=== PATIENT | female | born 1965 | race Hispanic/Latino ===

== ENCOUNTER 2019-06-11 04:14 | Emergency (ER) | payer OTHER, SELFPAY ==
[2019-06-11 04:15] VITALS: BP 141/88; PULSE 67; RESP 16; TEMP 36.8; O2SAT 97; BMI 28.8
--- NOTE | 2019-06-11 04:29 | RAD_ITS ---
STUDY: X-RAY CHEST REASON FOR EXAM: Female, 53 years old. WEAKNESS TECHNIQUE: Single frontal view of the chest. COMPARISON: None. FINDINGS: EKG leads artifacts. No pneumothorax identified. There may be a tiny left pleural effusion. Bilateral basilar atelectasis/infiltrate. Normal size heart. Normal mediastinum and jignesh. Normal visualized pulmonary arteries. Normal visualized aortic arch and descending thoracic aorta. There are diffuse degenerative changes of the visualized thoracic spine. Normal visualized ribs, clavicles, and shoulders. There is no demonstrated abnormality of the visualized soft tissue structures of the upper abdomen. RAD/Chest 1 View (Portable) IMPRESSION: Bilateral basilar atelectasis/infiltrate. There may be a tiny left pleural effusion versus pleural thickening. Electronically Signed: Mode Koch, at 5:15 EDT Tel , Service support ,
--- NOTE | 2019-06-11 04:29 | EKG12_ITS ---
Test Reason : WEAKNESS Blood Pressure : / mmHG Vent. Rate : 078 BPM Atrial Rate : 078 BPM P-R Int : 148 ms QRS Dur : 098 ms QT Int : 400 ms P-R-T Axes : 013 017 023 degrees QTc Int : 456 ms Normal sinus rhythm Normal ECG Confirmed by MICHAEL ADAMS MD ([id number]), editor magazine MARY AMBRIZ ([id number]) on 06/15/2019 9:07:07 AM Referred By: TAMIKA Confirmed By:MICHAEL ADAMS MD
--- NOTE | 2019-06-11 04:33 | ED.DCSUM_ITS ---
- ER Visit Summary Date of Service: 06/11/19 Chief Complaint: Weakness History of Present Illness: The patient is a 53 F who presents with weakness that began approximate 1 hour prior to arrival. Patient states she feels lightheaded. Patient states she feels like she is anemic. Patient states this is generalized. Patient states nothing makes it better or worse. Patient denies any nausea or vomiting. Patient denies any abdominal pain. Patient denies any diarrhea, melena, or hematochezia. Patient denies any chest pain or shortness of breath. Patient denies any fevers or chills. Patient denies any dysuria or hematuria. Physical Examination: Vital signs are stable. Patient is afebrile. Patient is in no acute distress. Oral mucosa is pink and moist. Neck is supple. Trachea is midline. There is no JVD. Heart was regular rate and rhythm. Lungs are clear and equal bilaterally. Abdomen is soft. Bowel sounds are normal. There is no tenderness. There is no guarding. Cranial nerves II through XII are intact. There are no focal motor or sensory deficits. Extremities are intact. There is no calf tenderness or edema. Test Results: EKG showed normal sinus rhythm with a rate of 78. There are no acute ST or T wave changes. Portable chest x-ray was obtained. There is bilateral basilar atelectasis. This was interpreted by the radiologist and myself. CBC and comprehensive metabolic profile was within normal limits. Urinalysis showed leukocyte esterase of 100 with 5-10 white blood cells. Emergency Department Course and Treatment: Patient was given IV fluids. Urine culture was sent. Orthostatic vital signs were obtained and were within normal limits. Patient was feeling better on reevaluation. Patient was given a prescription for Bactrim. Patient was given her first dose here. Patient was instructed to drink plenty of fluids. Patient was instructed to follow-up with her primary care physician in 5 to 7 days. Patient understood and was agreeable with the plan. All questions were answered. Disposition: Discharge home Impression: 1. Weakness 2. Urinary tract infection This note was generated with [employer] software. It may contain incorrect words, spelling, and punctuation that were not noted in review of the chart prior to signing ED Disposition - Plan for ED Patient: Disposition: Home or Assisted Living Diagnosis: Weakness, Urinary tract infection Instructions: ED CYSTITIS Female Adult Prescriptions: Smz/Tmp Ds [Bactrim Ds] 1 tab PO BID #6 tab Prescription Printed Referrals: Care Physician,No Primary [Primary Care Provider] - Aroldo Moralez MD [STAFF PHYSICIAN] - 5-7 Days
[2019-06-11] MEDS: 0.9% Normal Saline 1,000 ML 1000 ML IV (04:36)
[2019-06-11 04:43] LABS: Absolute Lymphocyte Count 3.59 X10^3/uL (0.83-4.51); Absolute Neutrophil Count 3.2 X10^3/uL (2.0-7.7); Basophil# 0.06 X10^3/uL; Basophil% 0.8 % (0-1); Eosinophil# 0.05 X10^3/uL; Eosinophils% 0.7 % (0-5); Hematocrit 40.8 % (37-47); Hemoglobin 13.3 g/dL (12.0-15.0); Lymphocyte # 3.59 X10^3/ul (4.0); Lymphocyte % 48.4 % (19-41); Mean Corp Hgb Conc 32.6 g/dL (32-36); Mean Corpuscular Hgb 25.4 pg (27.0-32.0); Mean Platelet Vol. 9.8 fl (6.2-12.0); Monocyte# 0.55 X10^3/uL; Monocyte% 7.4 % (0-10); NRBC Flagged by Analyzer 0 % (0-5); Neutrophil # 3.16 X10^3/uL (2.7-7.7); Neutrophil % 42.6 % (47-70); Platelet Count 309 K/mm3 (150-450); RBC Distribution Width SD 45.3 fl (35.1-43.9); Red Blood Count 5.23 M/mm3 (4.2-5.4); White Blood Count 7.4 K/mm3 (4.4-11.0)
[2019-06-11 04:56] LABS: AST(SGOT) 22 U/L (15-37); Alanine Aminotransfer ALT/SGPT 32 U/L (13-56); Albumin, Serum 3.9 g/dL (3.2-5.0); Alkaline Phosphatase 100 U/L (45-117); Anion Gap 7 (5-15); BUN 19 mg/dL (7-18); BUN/Creat Ratio 28.7 RATIO (10-20); Calcium,Total 8.8 mg/dL (8.5-10.1); Chloride 109 mmol/L (98-107); Creatinine, Serum 0.66 mg/dL (0.55-1.02); EST Glomerular Filtration Rate 99 mL/min (>60); Est Glom Filt Rate - Afr Amer 120 mL/min (>60); Estimated Creatinine Clearance 77.96 ml/min; Globulin 3.9 g/dL (2.2-4.2); Glucose 104 mg/dL (74-106); Potassium 3.9 mmol/L (3.5-5.1); Protein, Total 7.8 g/dL (6.4-8.2); Sodium Level 140 mmol/L (136-145)
[2019-06-11 05:18] VITALS: BP 122/78; BP 135/103; BP 147/98; PULSE 75; PULSE 85; PULSE 93
[2019-06-11 05:34] VITALS: BP 151/114; PULSE 75; RESP 18; O2SAT 96
[2019-06-11 05:44] LABS: Mucous, Urine 0 SEEN /hpf (<or=2+); Red Blood Cells-Urine 0 SEEN /hpf (0-5); Squamous Epithelial Cells - UA 0 SEEN /hpf (5-10)
[2019-06-11 05:46] LABS: Color, Urine Yellow (Yellow); Glucose, Dipstick Normal (Normal); Ketone-Dipstick Negative (Negative); Leukocyte Esterase-Dipstick 100 /ul (Negative); Nitrite-Dipstick Negative (Negative); Occult Blood-Urine Negative /ul (Negative); Protein-Dipstick Negative (Negative); Specific Gravity, Urine 1.015 (1.002-1.030); Urine Bilirubin Dipstick Negative (Negative); Urine Clarity Sl. Cloudy (Clear); Urine Urobilinogen Normal (Normal)
[2019-06-11 05:54] LABS: White Blood Cells 5-10 SEEN /hpf (0-5)
[2019-06-11 05:55] LABS: Bacteria RARE /hpf (None Seen)
[2019-06-11] MEDS: Smz/Tmp Ds Tablet 1 TABLET PO (06:24)
[2019-06-11 06:29] VITALS: BP 132/78; PULSE 76; RESP 20; O2SAT 97
== END 2019-06-11 06:30 | disposition home or self-care (01) ==
PROVIDERS: Emergency Provider Emergency Medicine
DX: R53.1 Weakness (principal); N39.0 Urinary tract infection, site not specified
CPT/HCPCS: 71045; 80053; 81001; 85025; 87086; 87088; 87804; 87807; 93005; 99284; J7030; A4216

== ENCOUNTER 2020-05-12 09:41 | Outpatient (RCR) | payer OTHER, SELFPAY ==
[2020-04-21 14:22] VITALS: BMI 29.4
[2020-05-12] MEDS: COVID-19 VACC, MRNA(PFIZER)/PF 30 MCG/0.3 ML SYRINGE IM (13:00)
[2020-06-02] MEDS: COVID-19 VACC, MRNA(PFIZER)/PF 30 MCG/0.3 ML SYRINGE IM (11:48)
== END 2020-08-01 23:59 ==
LOC: IMMUN 09:41
PROVIDERS: PCP Nurse Practitioner Family; Referring Provider Family Medicine; Visit Provider Family Medicine
DX: Z23 Encounter for immunization (principal)
CPT/HCPCS: 0001A; 0002A; 91300

== ENCOUNTER 2024-05-25 21:13 | Emergency (ER) | payer SELFPAY ==
[2024-05-25] VITALS (8 sets, daily range): BP systolic 108–152; BP diastolic 66–131; PULSE 97–215; RESP 22–30; TEMP 36.3–36.5; O2SAT 91–97; BMI 35.8
--- NOTE | 2024-05-25 21:22 | EKG12_ITS ---
Test Reason : DYSRHYTHMIA Blood Pressure : */* mmHG Vent. Rate : 204 BPM Atrial Rate : * BPM P-R Int : * ms QRS Dur : 78 ms QT Int : 214 ms P-R-T Axes : * 98 -63 degrees QTcB Int : 394 ms Critical Test Result: High HR Supraventricular tachycardia Rightward axis Marked ST abnormality, possible inferolateral subendocardial injury Abnormal ECG Confirmed by Ceasar Rocha ([id number]), editor greeting card FRANCINE CASILLAS ([id number]) on 05/26/2024 8:04:03 AM Referred By: TAMIKA Confirmed By: Ceasar Rocha
--- NOTE | 2024-05-25 21:40 | EKG12_ITS ---
Test Reason : Dysrhythmia Blood Pressure : */* mmHG Vent. Rate : 106 BPM Atrial Rate : 106 BPM P-R Int : 164 ms QRS Dur : 92 ms QT Int : 342 ms P-R-T Axes : 67 63 51 degrees QTcB Int : 454 ms Sinus tachycardia Incomplete right bundle branch block Nonspecific ST abnormality Abnormal ECG Confirmed by Ceasar Rocha ([id number]), technical writer and editor FRANCINE CASILLAS ([id number]) on 05/26/2024 7:52:06 AM Referred By: ERJI Confirmed By: Ceasar Rocha
[2024-05-25] MEDS: Adenosine 6 MG/2 ML Syringe IV (21:44)
--- NOTE | 2024-05-25 21:51 | RAD_ITS ---
PROCEDURE: CHEST 1 VIEW (PORTABLE) 05/25/2024 REASON FOR EXAM: PALPITATIONS TECHNIQUE: Frontal view of the chest. COMPARISON: June 11, 2019 FINDINGS: Hardware: None Heart: Cardiomegaly Lungs: Small left basilar effusion/atelectasis. Superimposed infection can not be excluded. Bones: The bones are unremarkable. Other: RAD/Chest 1 View (Portable) IMPRESSION: Small left basilar effusion/atelectasis. Superimposed infection be excluded. Reading Location: [facility]
--- NOTE | 2024-05-25 21:52 | EDS_ITS ---
HPI History of Present Illness Chief Complaint: Palpitations Narrative Narrative: 58-year-old female presents with elevated heart rate and palpitations that she began experiencing approximately 30 minutes ago. She states that she was sitting watching TV and felt her heart racing. She denies any recent leg swelling, no shortness of breath, no chest pain. She had an episode similar to this 10 to 15 years ago. She states she came to the emergency department was given medication, and did follow-up with cardiology but is not currently taking any medications for a fast heart rate because it never happened again after the initial episode. PFSH PFSH Home Medications ?Medication ?Instructions ?Recorded ?Last Taken ?Type NK 05/25/24 Unknown History Allergy/AdvReac Type Severity Reaction Status Date / Time No Known Allergies Allergy Verified 05/25/24 21:21 Family History Other Hypertension Surgical History H/O nasal septoplasty Social History Smoking Status: Never smoker ROS ROS ED ROS Narrative Review of systems positive for elevated heart rate and palpitations. Denies chest pain, shortness of breath, leg swelling, or other symptoms. EXAM Physical Exam Narrative Exam Narrative: Afebrile. Vital signs noted. Nontoxic-appearing. Cardiovascular examination reveals tachycardia in the 200s. Lungs clear to auscultation bilaterally. Abdomen soft and nontender with normoactive bowel sounds. No guarding or rebound. Neurological examination nonfocal and nonlateralizing. Const Vital Signs: 05/25/24 21:15 05/25/24 21:22 05/25/24 21:27 Temperature 97.7 F L 97.4 F L 97.4 F L Temperature Source Oral Oral Oral Pulse Rate 215 H 205 H 191 H Respiratory Rate 22 H 28 H Blood Pressure 152/131 H 111/66 Blood Pressure Mean 138 81 Pulse Ox 96 97 95 Oxygen Delivery Method Room Air Room Air Oxygen Flow Rate (L/min) 05/25/24 21:41 05/25/24 21:48 05/25/24 22:14 Temperature Temperature Source Pulse Rate 199 H 106 H 97 Respiratory Rate 30 H 26 H 25 H Blood Pressure 108/76 133/76 H 123/79 H Blood Pressure Mean 86 95 93 Pulse Ox 93 91 97 Oxygen Delivery Method Room Air Nasal Cannula Nasal Cannula Oxygen Flow Rate (L/min) 2 2 MDM MDM MDM Narrative Medical decision making narrative: Differential diagnosis includes but not limited to paroxysmal SVT versus sinus tachycardia versus atrial fibrillation. EKG was obtained and interpreted by myself independently as supraventricular tachycardia [address] changes. No STEMI. She is maintaining her blood pressure. She was administered adenosine 6 mg intravenously. Patient did experience nausea and vomiting prior to adenosine administration. Her repeat EKG was obtained and interpreted by myself independently as sinus tachycardia at 106 bpm without acut e ST changes. No STEMI. I will check her CBC and BMP as well as magnesium and a chest x-ray but I do not feel she needs a troponin as she was not having any chest pain. I reviewed her laboratory work and she has slightly elevated white count of 14.0 which I think is nonspecific, hemoglobin 14.0 as well. Hematocrit 43.9, platelet count normal at 413. Electrolyte panel is grossly unremarkable with a normal sodium of 140, potassium 3.7, BUN of 22 and creatinine 0.85. Glucose is slightly elevated at 168. Anion gap is being read at 21 with carbon dioxide of 13, but there has been lab errors throughout the day. Magnesium is normal at 2.1. Calcium normal at 8.6. Patient was administered Zofran for nausea. Her SVT was broken with 6 mg of adenosine. Chest x-ray in 1 view interpreted by myself independently shows no evidence of pneumonia or pneumothorax. No feel antibiotics are indicated. I reviewed the radiology report which comments on basilar atelectasis versus infiltrate. At this point in time, I did review her prior visit. There is no record of her being for SVT here at this emergency department. I was able to discuss patient with Dr. Rocha. As she has not had an episode recently before, was thought that she should just follow-up with cardiology, but if she has another episode before then that she would not need to be started on medication at that time. Disposition is discharged home in stable condition. History & Record Review Discussion w/independent historian: Patient Lab Data Attestation: I reviewed the patient's lab results. Labs: Laboratory Results - last 24 hr 05/25/24 21:38 WBC 14.0 H RBC 5.60 H Hgb 14.0 Hct 43.9 MCV 78.4 L MCH 25.0 L MCHC 31.9 L RDW Std Deviation 46.5 H RDW Coeff of Misael 16.7 H Plt Count 413 MPV 9.3 Immature Gran % (Auto) 0.200 Neut % (Auto) 38.8 L Lymph % (Auto) 51.5 H Nye % (Auto) 8.0 Eos % (Auto) 0.6 Baso % (Auto) 0.9 Absolute Neuts (auto) 5.4 Absolute Lymphs (auto) 7.21 H Nucleated RBC % 0 Sodium 140 Potassium 3.7 Chloride 105 Carbon Dioxide 13.7 L Anion Gap 21 H BUN 22 H Creatinine 0.85 Estim Creat Clear Calc 74.69 Est GFR (MDRD) Non-Af 80 BUN/Creatinine Ratio 26.0 H Glucose 168 H Calcium 8.6 Magnesium 2.1 Radiography Diagnostic Testing: Clinical Impression(s) from Imaging Studies Chest X-Ray 05/25/24 21:51 IMPRESSION: Small left basilar effusion/atelectasis. Superimposed infection be excluded. Reading Location: [facility] Discharge Plan Triage Chief Complaint: Palpitations ED Provider: Mikel Nuñez Dx/Rx/DC Orders Prescriptions: No Action NK Primary Care Provider: Love Muñiz NP Referrals: Love Muñiz NP, [facility] [Primary Care Provider] - Print Language: [place] Citizen
[2024-05-25 22:06] LABS: Absolute Lymphocyte Count 7.21 X10^3/uL (0.83-4.51); Absolute Neutrophil Count 5.4 X10^3/uL (2.0-7.7); Basophil# 0.12 X10^3/uL; Basophil% 0.9 % (0-1); Eosinophil# 0.09 X10^3/uL; Eosinophils% 0.6 % (0-5); Hematocrit 43.9 % (37-47); Lymphocyte # 7.21 X10^3/ul (0.83-4.51); Lymphocyte % 51.5 % (19-41); Mean Corp Hgb Conc 31.9 g/dL (32-36); Mean Corpuscular Volume 78.4 fL (81-99); Mean Platelet Vol. 9.3 fl (6.2-12.0); Monocyte# 1.12 X10^3/uL; NRBC Flagged by Analyzer 0 % (0-5); Neutrophil # 5.42 X10^3/uL (2.7-7.7); Neutrophil % 38.8 % (47-70); POSITIVE DIFFERENTIAL YES; Platelet Count 413 K/mm3 (150-450); RBC Distribution Width CV 16.7 % (11.6-14.6); RBC Distribution Width SD 46.5 fl (35.1-43.9)
[2024-05-25 22:21] LABS: Anion Gap 21 (5-15); BUN 22 mg/dL (4-19); Calcium,Total 8.6 mg/dL (7.6-11.0); Carbon Dioxide 13.7 mmol/L (21.0-32.0); Chloride 105 mmol/L (98-108); Creatinine, Serum 0.85 mg/dL (0.70-1.20); EST Glomerular Filtration Rate 80 (>60); Estimated Creatinine Clearance 74.69 ml/min (50-250); Glucose 168 mg/dL (70-99); Magnesium 2.1 mg/dL (1.5-2.2); Potassium 3.7 mmol/L (3.3-5.1); Sodium Level 140 mmol/L (133-145)
[2024-05-25 22:27] LABS: Differential Indicated SCAN CRITERIA MET
[2024-05-25 23:13] LABS: Differential Comment SCANNED
[2024-05-25] MEDS: Ondansetron 4 MG/2 ML Vial IV (23:17)
== END 2024-05-25 23:40 | disposition home or self-care (01) ==
PROVIDERS: Emergency Provider Emergency Medicine; PCP Nurse Practitioner Family; Visit Provider Emergency Medicine
DX: I47.10 Supraventricular tachycardia, unspecified (principal); R11.2 Nausea with vomiting, unspecified
CPT/HCPCS: 71045; 80048; 83735; 85025; 93005; 96374; 96375; 99283; J0153; J2405

== ENCOUNTER 2024-06-30 08:34 | Emergency (ER) | payer SELFPAY ==
[2024-06-30 08:34] VITALS: BP 145/82; PULSE 97; RESP 20; TEMP 37; O2SAT 96; BMI 35.3
--- NOTE | 2024-06-30 09:16 | EKG12_ITS ---
Test Reason : SOB Blood Pressure : */* mmHG Vent. Rate : 79 BPM Atrial Rate : 79 BPM P-R Int : 166 ms QRS Dur : 94 ms QT Int : 398 ms P-R-T Axes : 74 59 64 degrees QTcB Int : 456 ms Normal sinus rhythm Normal ECG Confirmed by Ceasar Rocha ([id number]), photo editor MERT ACOSTA ([id number]) on 07/02/2024 12:47:11 PM Referred By: Confirmed By: Ceasar Rocha
--- NOTE | 2024-06-30 09:17 | ED.VIS.DYS ---
HPI History of Present Illness Chief Complaint: Shortness of Breath Informant: patient Narrative Narrative: Patient is a 58-year-old female denies any past medical history but does not she does not insurance and does not go to the doctor regularly. She is presenting with shortness of breath. She states she woke up just feeling short of breath. She states it feels like the air is heavy. She denies any wheezing, difficulty breathing through her nose, sore throat, fever, chills, chest pain or leg swelling. Denies a history of DVT or PE. Denies any associated wheezing. Denies any sick contacts. Denies any cough. She states she is otherwise been in her normal state of health. Denies any nausea or vomiting. Chart review does show the patient was seen on 05/25/2024 for an episode of SVT which was treated with a dose of adenosine. She is not started on any medication. [facility] Home Medications ?Medication ?Instructions ?Recorded ?Last Taken ?Type albuterol sulfate 90 mcg/actuation 1 - 2 puff inhalation Q4H PRN PRN 06/30/24 Unknown Rx aerosol inhaler (Ventolin HFA) Wheezing or shortness of breath #1 inh prednisone 20 mg tablet 40 mg (2 x 20 mg) PO DAILY #10 06/30/24 Unknown Rx TABLETS Allergy/AdvReac Type Severity Reaction Status Date / Time No Known Allergies Allergy Verified 06/30/24 08:34 Family History Other Hypertension Surgical History H/O nasal septoplasty Social History Smoking Status: Never smoker ROS ROS ED Constitutional Constitutional ED: Denies chills or fever(s) ENT ENT ED: Denies rhinorrhea or sore throat Cardiovascular Cardiovascular: Denies chest pain or palpitations Respiratory/Chest Respiratory/Chest: Reports dyspnea; Denies cough or sputum Gastrointestinal Gastrointestinal: Denies abdominal pain, nausea or vomiting Musculoskeletal Musculoskeletal: Denies arthralgias or myalgias Neurologic Neurologic: Denies headache(s) or weakness EXAM Physical Exam Const Vital Signs: 06/30/24 08:34 06/30/24 09:16 06/30/24 09:30 Temperature 98.6 F Temperature Source Oral Pulse Rate 97 93 Respiratory Rate 20 H 17 Respiratory Effort Respiratory Depth Respiratory Pattern Normal Blood Pressure 145/82 H Blood Pressure Mean 103 Pulse Ox 96 Oxygen Delivery Method Room Air Room Air 06/30/24 09:30 06/30/24 10:46 Temperature 98.1 F Temperature Source Oral Pulse Rate 80 Respiratory Rate 22 H Respiratory Effort Normal Non-Labored Respiratory Depth Normal Respiratory Pattern Normal Blood Pressure 127/73 H Blood Pressure Mean 91 Pulse Ox 95 Oxygen Delivery Method Room Air Positive well nourished and well developed General Appearance ED: well developed; Negative for pallor HEENT Reports TM's clear and moist mucous membranes HEENT Narrative: Mildly boggy nasal mucosa presents. Normal oropharynx. Tympanic Membrane ED: Yes TM's clear Eyes PERRL Neck no lymphadenopathy, supple, no meningeal signs and no JVD Resp normal respiratory effort Resp Narrative: No wheezing appreciated. Mildly diminished breath sounds at the bases. No rales or rhonchi appreciated. Cardio regular rate, regular rhythm and no murmurs Cardio Narrative: 2+ radial DP pulses present GI non-tender and non-distended Extremity normal to inspection General Extremety ED: Negative for edema General Extremity: Negative for edema Neuro oriented x3 Sensorium / Orientation: alert Motor Exam: Negative for general weakness Psych mental status grossly normal Skin no wounds General Skin Exam: Negative for jaundice or pallor MDM MDM MDM Narrative Medical decision making narrative: Patient evaluated for shortness of breath that began when she woke up. She has no other associated symptoms. Upon arrival patient's blood pressure mildly elevated but she is 96% on room air. Differential includes pulmonary emboli, pneumonia, viral syndrome, pneumothorax and ACS. She is not hypotensive so low suspicion for more severe pathology such as cardiac tamponade. Workup including CBC, BMP, delta high-sensitivity opponent, chest x-ray, EKG and D-dimer is obtained. Workup largely normal. No acute processes found. Chest x-ray reviewed by myself as well as radiology does not show any acute process. EKG is normal. Patient is given a DuoNeb in the ER and states this did help with her symptoms. She is ambulated and stays at 95% and does well. She states she is feeling better on repeat evaluation. We discharged home with a prescription for an albuterol inhaler as well as a short course of steroids. Encouraged follow-up with primary care doctor. Given return precautions. Discharged home in stable and improved condition. Exact cause or symptoms is not clear by suspect it might be viral and possible bronchial given her response to aerosols. Lab Data Attestation: I reviewed the patient's lab results. Labs: Laboratory Results - last 24 hr 06/30/24 06/30/24 09:30 11:06 WBC 7.1 RBC 5.68 H Hgb 13.9 Hct 43.5 MCV 76.6 L MCH 24.5 L MCHC 32.0 RDW Std Deviation 45.6 H RDW Coeff of Misael 17.0 H Plt Count 380 MPV 9.2 Immature Gran % (Auto) 0.300 Neut % (Auto) 56.6 Lymph % (Auto) 34.4 Bath % (Auto) 6.1 Eos % (Auto) 1.8 Baso % (Auto) 0.8 Absolute Neuts (auto) 4.0 Absolute Lymphs (auto) 2.43 Nucleated RBC % 0 D-Dimer Quant (PE/DVT) < 0.27 L Sodium 138 Potassium 3.9 Chloride 107 Carbon Dioxide 21.0 Anion Gap 10 BUN 17 Creatinine 0.63 L Estim Creat Clear Calc 100.00 Est GFR (MDRD) Non-Af 103 BUN/Creatinine Ratio 27.3 H Glucose 168 H Calcium 9.2 Troponin T High Sens < 6 Troponin T Hi Sens 2 Hr < 6 Radiography Chest X-Ray - ED: 2 View, Read by ED Physician, Read by Radiologist and No Acute Disease Diagnostic Testing: Clinical Impression(s) from Imaging Studies Chest X-Ray 06/30/24 09:50 IMPRESSION: The lateral view is limited by patient motion. Areas of left basilar scarring are again seen, with slight blunting of the left costophrenic angle. No pleural effusion is seen. No pneumothorax is evident. No evidence of pulmonary edema. No acute pneumonic process is seen. The cardiomediastinal silhouette is stable, without evidence of cardiomegaly. No acute osseous process is seen. No evidence of acute cardiopulmonary disease. Reading Location: [place] [id number] Rhythm Strip Rhythm Strip: Sinus Rhythm Rate: 79 Ectopy: None EKG Initial EKG: Attestation: I personally reviewed and interpreted this EKG as follows: Interpretation: Sinus Rhythm Comments: Normal sinus rhythm rate of 79 bpm Normal axis Normal intervals Normal ST segments Discharge Plan Triage Chief Complaint: Shortness of Breath ED Provider: Jaclyn Garcia Dx/Rx/DC Orders Clinical Impression: Acute dyspnea Instructions: ED Dyspnea Prescriptions: New albuterol sulfate [Ventolin HFA] 90 mcg/actuation HFA aerosol inhaler 1 - 2 puff inhalation Q4H PRN PRN (Reason: Wheezing or shortness of breath) Qty: 1 0RF prednisone 20 mg tablet 40 mg PO DAILY Qty: 10 0RF Primary Care Provider: Love Muñiz NP Referrals: Love Muñiz ASSISTANT PROFESSOR OF SPANISH, ASSISTANT PROFESSOR OF SPANISH[facility] [Primary Care Provider] - Print Language: Yakut Disposition Disposition: Home, Self Care
[2024-06-30] MEDS: Ipratropium/Albuterol Sulfate 3 ML AMPUL.NEB INHALATION (09:29)
[2024-06-30 09:30] VITALS: PULSE 93; RESP 17
[2024-06-30 09:48] LABS: Absolute Lymphocyte Count 2.43 X10^3/uL (0.83-4.51); Basophil# 0.06 X10^3/uL; Basophil% 0.8 % (0-1); Eosinophil# 0.13 X10^3/uL; Eosinophils% 1.8 % (0-5); Hematocrit 43.5 % (37-47); Hemoglobin 13.9 g/dL (12.0-15.0); Lymphocyte # 2.43 X10^3/ul (0.83-4.51); Lymphocyte % 34.4 % (19-41); Mean Corpuscular Hgb 24.5 pg (27.0-32.0); Mean Corpuscular Volume 76.6 fL (81-99); Mean Platelet Vol. 9.2 fl (6.2-12.0); Monocyte# 0.43 X10^3/uL; Monocyte% 6.1 % (0-10); NRBC Flagged by Analyzer 0 % (0-5); Neutrophil # 3.99 X10^3/uL (2.7-7.7); Neutrophil % 56.6 % (47-70); Platelet Count 380 K/mm3 (150-450); RBC Distribution Width SD 45.6 fl (35.1-43.9); Red Blood Count 5.68 M/mm3 (4.2-5.4); White Blood Count 7.1 K/mm3 (4.4-11.0)
--- NOTE | 2024-06-30 09:50 | RAD_ITS ---
PROCEDURE: CHEST PA AND LATERAL 06/30/2024 REASON FOR EXAM: SOB TECHNIQUE: Frontal and lateral views of the chest. COMPARISON: AP chest of 05/25/2024. RAD/Chest PA and Lateral IMPRESSION: The lateral view is limited by patient motion. Areas of left basilar scarring are again seen, with slight blunting of the left costophrenic angle. No pleural effusion is seen. No pneumothorax is evident. No evidence of pulmonary edema. No acute pneumonic process is seen. The cardiomediastinal silhouette is stable , without evidence of cardiomegaly. No acute osseous process is seen. No evidence of acute cardiopulmonary disease. Reading Location: [place] [address]
[2024-06-30 10:13] LABS: D-Dimer Quantitative (DVT/PE) < 0.27 FEU/ug/m (0.27-0.49)
[2024-06-30 10:15] LABS: Anion Gap 10 (5-15); BUN 17 mg/dL (4-19); BUN/Creat Ratio 27.3 RATIO (10-20); Calcium,Total 9.2 mg/dL (7.6-11.0); Chloride 107 mmol/L (98-108); Creatinine, Serum 0.63 mg/dL (0.70-1.20); EST Glomerular Filtration Rate 103 (>60); Glucose 168 mg/dL (70-99); Potassium 3.9 mmol/L (3.3-5.1); Sodium Level 138 mmol/L (133-145); Troponin T High Sensitivity < 6 ng/L (<=14)
[2024-06-30 10:45] VITALS: O2SAT 95
[2024-06-30 10:46] VITALS: BP 127/73; PULSE 80; RESP 22; TEMP 36.7; O2SAT 95
[2024-06-30 11:32] LABS: Troponin T High Sens 2 HR < 6 ng/L (<=14)
== END 2024-06-30 12:30 | disposition home or self-care (01) ==
PROVIDERS: Emergency Provider Emergency Medicine; PCP Nurse Practitioner Family; Visit Provider Emergency Medicine
DX: R06.00 Dyspnea, unspecified (principal)
CPT/HCPCS: 71046; 80048; 84484; 85025; 85379; 93005; 94640; 99284; A4216